=== PATIENT | male | born 1950 | race Caucasian/White ===

== ENCOUNTER 2021-10-04 12:49 | Inpatient (IN) ==
[2021-10-04] MEDS ORDERED: BUMETANIDE 2 MG in SYRINGE 0 ML IV ONE (12:55)
--- NOTE | 2021-10-04 13:21 | Emergency Department Note ---
Impression & Plan Weakness, SOB (shortness of breath), CHF (congestive heart failure), Tachycardia, COVID-19 ED Provider Note NAME: JOAQUIM CALHOUN AGE: 70 SEX: M : 1950 ARRIVES VIA: Ambulance INFORMANT: [Patient][ems] ED PROVIDER(S): [Diego Nieves MD] CHIEF COMPLAINT: Illness, short of breath HISTORY OF PRESENT ILLNESS: The patient is a 70-year-old male who has a history of CHF and a low ejection fraction. He was discharged from [facility] about 5 days ago for a bout of CHF. Since discharge, his legs have become more swollen, he has become more short of breath and he has gained weight. He was seen at the cardiology office today and referred to the ED for hospitalization and IV diuresis. Patient does complain of a dry cough. No fever. He admits to shortness of breath with exertion. He is taking his diuretic as prescribed. The patient denies any chest pain. He does state his legs are definitely more swollen than baseline. Of note, the patient is not vaccinated for COVID or influenza. REVIEW OF SYSTEMS: See HPI for pertinent positives and negatives. A total of ten systems were reviewed and were otherwise negative. PMHx/PSHx: See Below SOCIAL HISTORY: See Below. PHYSICAL EXAM: GENERAL: Patient is in no acute distress. HEENT: No acute trauma, normocephalic atraumatic, mucous membranes dry, no nasal congestion, no scleral icterus. NECK: No stridor, no adenopathy, no meningismus, trachea is midline. LUNGS: Few crackles bilaterally, few wheezes heard bilaterally. Breath sounds are diminished bilaterally, no respiratory distress, dry cough noted. HEART: 2/6 systolic murmur, irregular rhythm, mildly tachycardic ABDOMEN: Soft, nontender, bowel sounds positive, no hernias, no peritonitis. EXTREMITIES: No cyanosis, moderate bilateral pedal edema, full range of motion of all the joints without pain or difficulty, no signs for acute trauma. NEUROLOGIC: Oriented x 3, no acute motor or sensory deficits, no focal weakness. SKIN: No rash, no jaundice, no diaphoresis. Seems a bit pale. DIFFERENTIAL DIAGNOSIS: Reactive airway disease, pneumonia, pneumothorax, COVID-19, influenza, COPD, CHF, infection, cardiac ischemia, pulmonary embolism, bronchitis, musculoskeletal, gastrointestinal, as well as other pathologies. EMERGENCY DEPARTMENT COURSE/PROCEDURES: ECG: Indication was shortness of breath. The ECG shows a ventricular pacemaker with multiple presumed muscogee beats or PVCs The rate is 127. There is some ST elevation to the anterior leads but this appears consistent with the left bundle branch block pattern. QTC is 563. Compared to an ECG from 2011, the rate has increased, the anterior ST elevation is now seen. Continuous Cardiac Monitoring: An order was placed for continuous cardiac monitoring. The monitor shows a rate of 118 with a ventricular pacemaker and muscogee beats/PVCs. MEDICAL DECISION MAKING: There is no leukocytosis. A mild anemia was noted at 12.8. Platelet count a bit low at 124. INR was somewhat high at 1.4. Sodium low at 135. There was some elevation to the creatinine at 1.89. Glucose mildly elevated. Some subtle liver enzyme elevations were noted. BNP was quite high at over one thousand consistent with fluid overload and CHF. ECG shows a ventricular pacemaker with multiple muscogee beats. The patient was tachycardic. Cardiac enzyme testing x1 is somewhat elevated consistent with cardiac injury/strain. TSH was high however, the T4 was normal. Chest x-ray does show cardiomegaly and some CHF. No pneumonia. COVID testing returned positive. Influenza and RSV testing returned negative. The patient was given IV Bumex, 2 mg. He was given a dose of IV Lopressor, 5 mg. This slowed his heart rate a bit but did drop his blood pressure under 100 systolic. The patient presents with weakness, shortness of breath. He was sent over from the cardiology clinic for worsening fluid overload/CHF. In addition, he is COVID-positive. I suspect his dyspnea and complaints are from his CHF as well as the COVID infection. I did speak with the patient about his findings, case management was consulted. The on-call hospitalist was consulted. Cardiology did see the patient here in the ED. Admission is warranted. Past Med/Surg History Medical History (Updated 10/04/21 @ 19:06 by Diego Nieves MD) Acute on chronic renal insufficiency Chronic atrial fibrillation with rapid ventricular response HTN (hypertension) Hypothyroidism Severe aortic insufficiency Social History Smoking Status: Never smoker Hx Alcohol Use: No Hx Substance Use: No Preferred Language: [place]de[place] Communication Ability: Effective Mental Health Coordinator Required: No Beliefs That Will Affect Care: None Current Living Situation: Spouse Other Information That Helps Us Care for You: No Feels Safe at Home: Yes Assistive Devices: None Allergies Allergies Allergy/AdvReac Type Severity Reaction Status Date / Time latex Allergy Mild RASH Verified 10/04/21 13:44 amiodarone Allergy Unknown liver Verified 10/04/21 13:44 complications NSAIDS (Non-Steroidal Allergy Unknown unknown Verified 10/04/21 13:44 Anti-Inflamma [id number]-[id number]-HsR Reductase Allergy Unknown myositis Verified 10/04/21 13:44 Inhibitor [Ygtejuo-Puz-Ocx Reductase Inhibitor] gabapentin Allergy Confusion Unverified 10/04/21 13:44 pregabalin [From Lyrica] Allergy Confusion Unverified 10/04/21 13:44 Home Meds Home Medications Medication Instructions Recorded Confirmed aspirin 81 mg capsule 81 mg PO DAILY 10/04/21 10/04/21 glipizide 2.5 mg tablet, extended 2.5 mg PO DAILY 10/04/21 10/04/21 release 24 hr inulin 1.5 gram chewable tablet 0 g PO DAILY 10/04/21 10/04/21 levothyroxine 25 mcg tablet 50 mcg PO DAILYBB 10/04/21 10/04/21 metoprolol succinate 25 mg 37.5 mg PO BID 10/04/21 10/04/21 tablet,extended release 24 hr omeprazole 40 mg capsule,delayed 40 mg PO QAM 10/04/21 10/04/21 release temazepam 30 mg capsule 30 mg PO HS PRN 10/04/21 10/04/21 torsemide 20 mg tablet 20 mg PO BID 10/04/21 10/04/21 vitamin E 1,000 unit capsule 1,000 unit PO DAILY 10/04/21 10/04/21 Results & Data (ED) Vital Signs Vital Signs - 24 hr 10/04/21 13:13 10/04/21 13:15 10/04/21 13:24 Temperature 36.7 C Temperature Source Temporal Artery Scan Pulse Rate 118 H 118 H Pulse Rate [Apical] 113 H Pulse Rhythm [Apical] Irregular Respiratory Rate 18 24 24 Respiratory Effort / Characteristics Non-Labored Spontaneous Non-Labored Respiratory Depth Normal Blood Pressure 110/87 Blood Pressure [Left Arm] 110/87 Blood Pressure Mean 94 Blood Pressure Mean [Left Arm] 94 Blood Pressure Position [Left Arm] Semi-fowlers Pulse Oximetry 98 97 97 Oxygen Delivery Method Room Air Room Air Room Air Sepsis Recent Fever Within 48 Hours No Sepsis New/Unexplained Change in Mental Status N/A Sepsis Action Taken by Nursing No Action Required Home Medications Current Medication List: was personally reviewed by me Laboratory Data Attestation: I reviewed the patient's lab results. Result diagrams: 10/04/21 13:21 10/04/21 13:21 Lab Results 10/04/21 10/04/21 10/04/21 Range/Units 13:21 13:21 13:21 WBC 6.18 (4.8-10.8) K/uL RBC 5.24 (4.7-6.1) M/uL Hgb 12.8 L (14.0-18.0) g/dL Hct 40.6 L (42-52) % MCV 77.5 L (80-100) fL MCH 24.4 L (25-34) pg MCHC 31.5 L (32-36) g/dL RDW Std Deviation 46.2 (36.4-46.3) fL RDW Coeff of Jenny 16.8 H (11.5-14.5) % Plt Count 124 L (130-400) K/uL Immature Gran % (Auto) 0.3 % Neut % (Auto) 67.9 % Lymph % (Auto) 25.1 % Banks % (Auto) 6.3 % Eos % (Auto) 0.2 % Baso % (Auto) 0.2 % Neut # (Auto) 4.20 (1.4-6.5) K/uL Lymph # (Auto) 1.55 (1.2-3.4) K/uL Banks # (Auto) 0.39 (0.11-0.59) K/uL Eos # (Auto) 0.01 (0-0.5) K/uL Baso # (Auto) 0.01 (0-0.2) K/uL Immature Gran # (Auto) 0.02 (0.00-0.02) K/uL Platelet Estimate Decreased L (Normal) PT 13.7 H (9.0-12.0) Seconds INR 1.4 H (0.9-1.1) APTT 27.8 (21.0-31.0) Seconds PTT Ratio 1.1 Sodium 135 L (136-145) mmol/L Potassium 3.8 (3.5-5.1) mmol/L Chloride 99 (98-107) mmol/L Carbon Dioxide 25 (21-32) mmol/L Anion Gap 11 (3-11) BUN 46 H (6-23) mg/dl Creatinine 1.89 H (0.6-1.4) mg/dl Est Cr Clr Drug Dosing 36.8 ml/min Est GFR ( Amer) 40.5 ml/min Est GFR (Non-Af Amer) 34.9 ml/min BUN/Creatinine Ratio 24.3 H (10-20) Glucose 285 H (70-99(Fasting)) mg/dl Calcium 8.5 (8.5-10.1) mg/dl Magnesium 2.1 (1.7-2.4) mg/dl Total Bilirubin 1.2 H (0.2-1.0) mg/dl AST 25 (13-39) U/L ALT 38 (7-52) U/L Alkaline Phosphatase 151 H (34-104) U/L Troponin I 0.11 H* (0-0.04) ng/ml C-Reactive Protein (0-0.5) mg/dl B-Natriuretic Peptide (0-100) pg/ml Total Protein 6.3 (6.0-8.3) gm/dl Albumin 3.7 (3.4-5.0) gm/dl Globulin 2.6 (2.5-4.0) gm/dl Albumin/Globulin Ratio 1.4 (0.9-2) Procalcitonin (0-0.5) ng/ml TSH (0.300-4.500) uIu/ml Free T4 (0.61-1.60) ng/dl 10/04/21 10/04/21 10/04/21 Range/Units 13:21 13:21 13:21 WBC (4.8-10.8) K/uL RBC (4.7-6.1) M/uL Hgb (14.0-18.0) g/dL Hct (42-52) % MCV (80-100) fL MCH (25-34) pg MCHC (32-36) g/dL RDW Std Deviation (36.4-46.3) fL RDW Coeff of Jenny (11.5-14.5) % Plt Count (130-400) K/uL Immature Gran % (Auto) % Neut % (Auto) % Lymph % (Auto) % Banks % (Auto) % Eos % (Auto) % Baso % (Auto) % Neut # (Auto) (1.4-6.5) K/uL Lymph # (Auto) (1.2-3.4) K/uL Banks # (Auto) (0.11-0.59) K/uL Eos # (Auto) (0-0.5) K/uL Baso # (Auto) (0-0.2) K/uL Immature Gran # (Auto) (0.00-0.02) K/uL Platelet Estimate (Normal) PT (9.0-12.0) Seconds INR (0.9-1.1) APTT (21.0-31.0) Seconds PTT Ratio Sodium (136-145) mmol/L Potassium (3.5-5.1) mmol/L Chloride (98-107) mmol/L Carbon Dioxide (21-32) mmol/L Anion Gap (3-11) BUN (6-23) mg/dl Creatinine (0.6-1.4) mg/dl Est Cr Clr Drug Dosing ml/min Est GFR ( Amer) ml/min Est GFR (Non-Af Amer) ml/min BUN/Creatinine Ratio (10-20) Glucose (70-99(Fasting)) mg/dl Calcium (8.5-10.1) mg/dl Magnesium (1.7-2.4) mg/dl Total Bilirubin (0.2-1.0) mg/dl AST (13-39) U/L ALT (7-52) U/L Alkaline Phosphatase (34-104) U/L Troponin I (0-0.04) ng/ml C-Reactive Protein 1.63 H (0-0.5) mg/dl B-Natriuretic Peptide 1322 H (0-100) pg/ml Total Protein (6.0-8.3) gm/dl Albumin (3.4-5.0) gm/dl Globulin (2.5-4.0) gm/dl Albumin/Globulin Ratio (0.9-2) Procalcitonin (0-0.5) ng/ml TSH 6.694 H (0.300-4.500) uIu/ml Free T4 1.15 (0.61-1.60) ng/dl 10/04/21 Range/Units 13:21 WBC (4.8-10.8) K/uL RBC (4.7-6.1) M/uL Hgb (14.0-18.0) g/dL Hct (42-52) % MCV (80-100) fL MCH (25-34) pg MCHC (32-36) g/dL RDW Std Deviation (36.4-46.3) fL RDW Coeff of Jenny (11.5-14.5) % Plt Count (130-400) K/uL Immature Gran % (Auto) % Neut % (Auto) % Lymph % (Auto) % Banks % (Auto) % Eos % (Auto) % Baso % (Auto) % Neut # (Auto) (1.4-6.5) K/uL Lymph # (Auto) (1.2-3.4) K/uL Banks # (Auto) (0.11-0.59) K/uL Eos # (Auto) (0-0.5) K/uL Baso # (Auto) (0-0.2) K/uL Immature Gran # (Auto) (0.00-0.02) K/uL Platelet Estimate (Normal) PT (9.0-12.0) Seconds INR (0.9-1.1) APTT (21.0-31.0) Seconds PTT Ratio Sodium (136-145) mmol/L Potassium (3.5-5.1) mmol/L Chloride (98-107) mmol/L Carbon Dioxide (21-32) mmol/L Anion Gap (3-11) BUN (6-23) mg/dl Creatinine (0.6-1.4) mg/dl Est Cr Clr Drug Dosing ml/min Est GFR ( Amer) ml/min Est GFR (Non-Af Amer) ml/min BUN/Creatinine Ratio (10-20) Glucose (70-99(Fasting)) mg/dl Calcium (8.5-10.1) mg/dl Magnesium (1.7-2.4) mg/dl Total Bilirubin (0.2-1.0) mg/dl AST (13-39) U/L ALT (7-52) U/L Alkaline Phosphatase (34-104) U/L Troponin I (0-0.04) ng/ml C-Reactive Protein (0-0.5) mg/dl B-Natriuretic Peptide (0-100) pg/ml Total Protein (6.0-8.3) gm/dl Albumin (3.4-5.0) gm/dl Globulin (2.5-4.0) gm/dl Albumin/Globulin Ratio (0.9-2) Procalcitonin 0.23 (0-0.5) ng/ml TSH (0.300-4.500) uIu/ml Free T4 (0.61-1.60) ng/dl Administered Medications Bumetanide 1 mg/ Syringe 4 mls @ 4 mls/min IV BID@0900,1700 [facility] Stop: 11/03/21 17:10 Last Admin: 10/04/21 17:55 Dose: 4 mls/min Documented by: [id number] Insulin Aspart (Insulin Aspart Per Unit) 0 units SC ACHS [facility]; Protocol Stop: 11/03/21 16:29 Last Admin: 10/04/21 17:42 Dose: 22 units Documented by: [id number] Cosigned by: [id number] Discontinued Medications Albuterol (Albuterol Hfa 8 Gm Inhaler) 2 puffs INH QID ADRIANNE Stop: 11/03/21 16:59 Last Admin: 10/04/21 17:06 Dose: Not Given Documented by: [id number] Bumetanide 2 mg/ Syringe 8 mls @ 4 mls/min IV ONE ONE Stop: 10/04/21 12:56 Last Admin: 10/04/21 14:35 Dose: 4 mls/min Documented by: [id number] Dexamethasone 6 mg/ Syringe 1.5 mls @ 1 mls/min IV DAILY [facility]; Protocol Stop: 10/14/21 08:59 Last Admin: 10/04/21 17:23 Dose: 1 mls/min Documented by: [id number] Insulin Human NPH (Insulin Human Nph) 25 units SC NOW ONE Stop: 10/04/21 16:01 Last Admin: 10/04/21 17:43 Dose: 25 units Documented by: [id number] Cosigned by: [id number] Metoprolol Tartrate (Metoprolol Tartrate 1 Mg/Ml Vial) 5 mg IV NOW STA Stop: 10/04/21 15:23 Last Admin: 10/04/21 15:28 Dose: 5 mg Documented by: [id number] Metoprolol Tartrate (Metoprolol Tartrate 1 Mg/Ml Vial) 5 mg IV NOW STA Stop: 10/04/21 15:47 Last Admin: 10/04/21 16:10 Dose: Not Given Documented by: [id number] Imaging Data Radiologist's Impression: Chest X-Ray 10/04/21 12:54 XR chest 1V portable CLINICAL HISTORY: SOB. Increased fluid retention and wheezing COMPARISON STUDY: 05/12/2012 TECHNIQUE: 1 view of the chest FINDINGS: Single frontal view of the chest demonstrates the heart to be moderately to markedly enlarged status post previous cardiothoracic surgery and pacer placement. Compared to previous study, there is evidence for mild central vascular congestion and minimal bibasilar atelectasis. Is also suspicion of small bilateral pleural effusions. Follow-up PA and lateral radiographs would be helpful. No confluent alveolar opacities are identified. There is no acute osseous pathology. IMPRESSION: Evidence for mild central vascular congestion, minimal bibasilar atelectasis and small bilateral pleural effusions as described. ACT 112: Negative or not required by law. Electronically signed by: Frandy Verdin M.D. 10/04/2021 1:35 PM Discharge Plan Visit Data Chief Complaint: Illness Stated Complaint: REFERRED BY PCP, ED Provider: Diego Nieves Discharge Problem: Weakness, SOB (shortness of breath), CHF (congestive heart failure), Tachycardia, COVID-19 Patient Disposition: Admitted As Inpatient Condition: Fair Discharge Instructions Interventions: ED Discharge Assessment Last Done: 10/04/21 18:16
--- NOTE | 2021-10-04 13:36 | XRay Report ---
XR chest 1V portable CLINICAL HISTORY: SOB. Increased fluid retention and wheezing COMPARISON STUDY: 05/12/2012 TECHNIQUE: 1 view of the chest FINDINGS: Single frontal view of the chest demonstrates the heart to be moderately to markedly enlarged status post previous cardiothoracic surgery and pacer placement. Compared to previous study, there is eviden ce for mild central vascular congestion and minimal bibasilar atelectasis. Is also suspicion of small bilateral pleural effusions. Follow-up PA and lateral radiographs would be helpful. No confluent mack eolar opacities are identified. There is no acute osseous pathology. IMPRESSION: Evidence for mild central vascular congestion, minimal bibasilar atelectasis and small bi lateral pleural effusions as described. ACT 112: Negative or not required by law. Electronically signed by: Frandy Verdin M.D. 10/04/2021 1:35 PM
--- NOTE | 2021-10-04 13:36 | History & Physical Report ---
Date of Service October 04, 2021 Assessment & Plan (1) Severe aortic insufficiency: (2) S/P aortic valve replacement using Ross procedure: (3) S/P AAA repair: (4) HTN (hypertension): (5) Chronic atrial fibrillation: (6) Hypervolemia: (7) Biventricular implantable cardioverter-defibrillator in situ: Plan: - Admit to PCU - Consult Cardiology - Dr. Shin is on consult, follows routinely with Dr. Ruiz as an outpatient and comes from the cardiac office today - Will start on IV Bumex 1 mg BID per cards, he has recently been on bumex in outpatient and was changed over to torsemide in the past 2 weeks, will ask cards to determine which diuretic to continue on discharge - Place sanches cath for strict I/Os - Continue daily weights, fluid restriction of 1500 mL daily - Monitor Cr. daily with aggressive diuresis, Cr. baseline is 1.8-2.1, currently 1.89 - Trend troponins as initial was elevated at 0.11, ekg without acute ischemic findings - Recheck EKG in am - no anticoagulation secondary to hx of near fatal GI bleed in 2010 (8) DM II (diabetes mellitus, type II), controlled: Plan: - Hold glipizide, ISS with accuchecks achs - Recheck A1C - Boost ordered (9) Hypothyroidism: Plan: - Continue levothyroxine DVT ppx: - teds, scds CODE: DNI/DNR - discussed with the patient at bedside Dispo: From home, likely to remain in the hospital x 1-2 days History of Present Illness Chief Complaint: Shortness of breath, hypervolemia Primary Care Provider: Bryon Pimentel MD This is a 70 yo M with PMhx of CHF; history of complex multifactorial nonischemic cardiomyopathy, aortic valve replacement s/p Ross procedure in 1995 and aortic valve replacement for aoritc insufficiency at [facility] in 2011, AAA s/o repair in 2010, chronic atrial fibrillation, not on anticoagulation due to past life-threatening gastrointestinal bleeding in 2010, Severe aortic insufficiency, EF of 20-25%, HTN, atrial flutter s/p cavotricuspid isthmus ablation in 2010 and ablation of a second right atrial (scar) atrial flutter in 2010, LBBB, s/p implantation of Medtronic biventricular defibrillator in 2011, DM II and hypothyroidism. Unfortunately over the last few months, patient decided to complete a dietary 'cleanse' and subsequently stopped taking all of his cardiac medications. He developed worsening SOB, and fluid retention. He resumed his torsemide as an outpatient without improvement. On 09/18/21 he was admitted to [facility] for acute decompensated systolic HF exacerbation, complicated by elevated LFT's, CARLITOS, and afib RVR. He was followed by cardiology. He was started on IV lasix with improvement in his volume status. Digoxin was discontinued and metoprolol increased to 37.5 mg BID to aid with ventricular rates. He was not anticoagulated due to past GI bleeding issues and patient preference. Amiloride was stopped on discharge as well. He resumed prior dose of Bumex 2 mg in the morning and 1 mg in the afternoon on discharge. Since being discharged he reports worse fluid retention, and weight gain of 15 lbs. He was seen last week due to being acutely worse with SOB and fluid retention and declined hospitalization at that time. He was treated with IV lasix 80 mg. Bumex was stopped and torsemide was initiated. Metoprolol was also resumed at 37.5 mg as the pt had reduced dose back to 25 mg since hospital discharge. He presented to the outpatient cardiology clinic earlier today. After his visit there, EMS was called and he was brought directly to the hospital. His symptoms include significant dyspnea with minimal exertion, bilateral lower edema with swelling so severe that there are clear fluid seeping out at times. His weight is down slightly ( 6 lbs) in the cards office compared to last week but still reports feeling worse. Dry weight is 185 lbs, but weighs 196 today. Pt reports no shorntess of breath at rest. His appetite is slightly diminished, but is hungry currently and requesting a drink for thirst. Pt would like a protein supplement while here. He denies dizziness, lightheadedness, chest pain and palpitations. Allergies Allergy/AdvReac Type Severity Reaction Status Date / Time latex Allergy Mild RASH Verified 10/04/21 13:44 amiodarone Allergy Unknown liver Verified 10/04/21 13:44 complications NSAIDS (Non-Steroidal Allergy Unknown unknown Verified 10/04/21 13:44 Anti-Inflamma Idlywyd-XSW-MbQ Reductase Allergy Unknown myositis Verified 10/04/21 13:44 Inhibitor [Tyivfbs-Kad-Awm Reductase Inhibitor] gabapentin Allergy Confusion Unverified 10/04/21 13:44 pregabalin [From Lyrica] Allergy Confusion Unverified 10/04/21 13:44 Home Medications Medication Instructions Recorded Confirmed Type aspirin 81 mg capsule 81 mg PO DAILY 10/04/21 10/04/21 History glipizide 2.5 mg tablet, extended 2.5 mg PO DAILY 10/04/21 10/04/21 History release 24 hr inulin 1.5 gram chewable tablet 0 g PO DAILY 10/04/21 10/04/21 History levothyroxine 25 mcg tablet 50 mcg PO DAILYBB 10/04/21 10/04/21 History metoprolol succinate 25 mg 37.5 mg PO BID 10/04/21 10/04/21 History tablet,extended release 24 hr omeprazole 40 mg capsule,delayed 40 mg PO QAM 10/04/21 10/04/21 History release temazepam 30 mg capsule 30 mg PO HS PRN 10/04/21 10/04/21 History torsemide 20 mg tablet 20 mg PO BID 10/04/21 10/04/21 History vitamin E 1,000 unit capsule 1,000 unit PO DAILY 10/04/21 10/04/21 History Past Med/Surg History Social History Smoking Status: Never smoker Hx Alcohol Use: No Hx Substance Use: No Preferred Language: Citizen Of [place] Communication Ability: Effective 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 Beliefs That Will Affect Care: None Current Living Situation: Spouse Other Information That Helps Us Care for You: No Feels Safe at Home: Yes Assistive Devices: None Review of Systems Review of Systems: Constitutional: No fever, sweats or chills Eyes: No diplopia, no worsening or blurred vision ENT: normal hearing, no trouble swallowing, + dry nose and bleeding if he takes baby aspirin every day Respiratory: + occasional dry cough, occasional clear sputum, no dyspnea at rest, + dyspnea on exertion, no orthopnea, no O2 use at baseline Cardiovascular: No chest pain, tightness or palpitations Abdomen: + decreased appetite, No pain, nausea, vomiting, diarrhea or constipation Musculoskeletal: No joint pain, calf pain, + significant lower extremity swelling Neurologic: + generalized weakness, no numbness/tingling, or balance problems Psychiatric: No anxiety or depression Skin: No rash or itch Physical Exam Physical Exam: General: awake, alert, no apparent distress Head: Normocephalic, atraumatic ENT: PERRL, EOMI, no pharyngeal exudate, mucous membranes moist Chest: Clear to auscultation, on room air, no adventitious breath sounds Cardiac: irregularly irregular, tachycardic with hr in 110s, + systolic ejection murmur, + moderate JVD, normal peripheral pulses, good capillary refill Abdominal: NABS x 4 quadrants, soft, nondistended, nontender to palpation, no rebound or guarding Extremities: Normal inspection, 2+ pitting peripheral edema, no seeping of fluid, no erythema, calfs nontender to palpation Psych: Normal mood and affect Neuro: AAO x 3, strength intact bilaterally and rated 5/5, no motor deficits, speech is clear, no peripheral sensory deficits Results & Data Results & Data ([facility]) Laboratory Results 10/04/21 10/04/21 10/04/21 13:21 13:21 13:21 WBC RBC Hgb Hct MCV MCH MCHC RDW Std Deviation RDW Coeff of Jenny Plt Count Immature Gran % (Auto) Neut % (Auto) Lymph % (Auto) [place] % (Auto) Eos % (Auto) Baso % (Auto) Neut # (Auto) Lymph # (Auto) [place] # (Auto) Eos # (Auto) Baso # (Auto) Immature Gran # (Auto) Platelet Estimate PT 13.7 H INR 1.4 H APTT 27.8 PTT Ratio 1.1 Sodium 135 L Potassium 3.8 Chloride 99 Carbon Dioxide 25 Anion Gap 11 BUN 46 H Creatinine 1.89 H Est Cr Clr Drug Dosing 36.8 Est GFR ( Amer) 40.5 Est GFR (Non-Af Amer) 34.9 BUN/Creatinine Ratio 24.3 H Glucose 285 H Calcium 8.5 Magnesium 2.1 Total Bilirubin 1.2 H AST 25 ALT 38 Alkaline Phosphatase 151 H Troponin I 0.11 H* B-Natriuretic Peptide 1322 H Total Protein 6.3 Albumin 3.7 Globulin 2.6 Albumin/Globulin Ratio 1.4 10/04/21 13:21 WBC 6.18 RBC 5.24 Hgb 12.8 L Hct 40.6 L MCV 77.5 L MCH 24.4 L MCHC 31.5 L RDW Std Deviation 46.2 RDW Coeff of Jenny 16.8 H Plt Count 124 L Immature Gran % (Auto) 0.3 Neut % (Auto) 67.9 Lymph % (Auto) 25.1 [place] % (Auto) 6.3 Eos % (Auto) 0.2 Baso % (Auto) 0.2 Neut # (Auto) 4.20 Lymph # (Auto) 1.55 [place] # (Auto) 0.39 Eos # (Auto) 0.01 Baso # (Auto) 0.01 Immature Gran # (Auto) 0.02 Platelet Estimate Decreased L PT INR APTT PTT Ratio Sodium Potassium Chloride Carbon Dioxide Anion Gap BUN Creatinine Est Cr Clr Drug Dosing Est GFR ( Amer) Est GFR (Non-Af Amer) BUN/Creatinine Ratio Glucose Calcium Magnesium Total Bilirubin AST ALT Alkaline Phosphatase Troponin I B-Natriuretic Peptide Total Protein Albumin Globulin Albumin/Globulin Ratio Diagnostic Findings Chest X-Ray 10/04/21 12:54 XR chest 1V portable CLINICAL HISTORY: SOB. Increased fluid retention and wheezing COMPARISON STUDY: 05/12/2012 TECHNIQUE: 1 view of the chest FINDINGS: Single frontal view of the chest demonstrates the heart to be moderately to markedly enlarged status post previous cardiothoracic surgery and pacer placement. Compared to previous study, there is evidence for mild central vascular congestion and minimal bibasilar atelectasis. Is also suspicion of small bilateral pleural effusions. Follow-up PA and lateral radiographs would be helpful. No confluent alveolar opacities are identified. There is no acute osseous pathology. IMPRESSION: Evidence for mild central vascular congestion, minimal bibasilar atelectasis and small bilateral pleural effusions as described. ACT 112: Negative or not required by law. Electronically signed by: Frandy Verdin M.D. 10/04/2021 1:35 PM ECG Additional Comments: 04-OCT-2021 13:07:40 [facility]-EDSTAT ROUTINE RETRIEVAL Ventricular-paced rhythm with occasional supraventricular complexes Abnormal ECG When compared with ECG of 12-MAY-2012 11:21, Premature ventricular complexes are no longer Present Vent. rate has increased BY 36 BPM 25mm/s 10mm/mV 150Hz 9.0.9 12SL 241 SKYE: 15 Unconfirmed Vent. rate 127 BPM VA interval * ms QRS duration 146 ms QT/QTc 388/563 ms Supervising Physician Co-Signing Physician Notes Patient is a 70-year-old male with complex medical history of CHF, AVR S/P Ross procedure, AAA S/P repair, chronic atrial fibrillation currently not on anticoagulation due to history of GI bleed, hypothyroidism, diabetes mellitus and other medical problems presents with history of worsening shortness of breath, fluid retention. Patient was evaluated by his needle board repairer as outpatient and was sent to ED for management of volume overload. He was tested positive for COVID in ED. He denies any chest pain, dizziness, nausea, vomiting, abdominal pain. Admits to having nonproductive cough. He was found to be in A. fib RVR while in ED. Please review HPI for complete details of presentation. Patient refused anticoagulation due to history of significant GI bleed in the past. Blood work suggestive of anemia 12.8, thrombocytopenia 120 4K, INR mildly elevated 1.4, creatinine 1.89, blood glucose levels 285, troponin elevated at 0.11, BNP 1322, TSH 6.6, normal free T4. Chest x-ray showed mild vascular congestion, bibasilar atelectasis, small bilateral pleural effusions. On exam patient is chronically ill appearing, normocephalic atraumatic, no apparent distress, EOMI, decreased breath sounds, basilar Rales,+ murmur, irregularly irregular rhythm, tachycardic, bilateral lower extremity edema, abdomen soft, nontender, normal bowel sounds, alert, awake, oriented, grossly no focal deficits. Patient is admitted for management of acute on chronic systolic, diastolic heart failure, A. fib RVR, COVID-19 infection. Will start on IV Bumex, monitor I's and O's, daily weight, fluid restriction, low-sodium diet. Appreciate cardiology input. Started on metoprolol 12.5 mg every 6 hours for A. fib rate control. Will update echo patient refuses anticoagulation treatment. Patient states being unvaccinated for COVID-19. Patient currently saturating well on room air. Conservative management for CVOID unless develops hypoxia. Patient prefers to be DNI/DNR. I personally reviewed the record. Patient is interviewed and examined at bedside. Patient's care is coordinated with Patria Urrutia PA-C. Please refer to the documentation above for details of patient's presentation and for discussion of other issues. Correction to Addendum: Given patient is saturating well on room air. No plan to start on dexamethasone.
[2021-10-04 13:38] LABS: Mean Corpuscular Hgb Conc 31.5 g/dL (32-36)
[2021-10-04 13:48] LABS: Hematocrit (blood only) 40.6 % (42-52); Hemoglobin 12.8 g/dL (14.0-18.0); Mean Corpuscular Hemoglobin 24.4 pg (25-34); Mean Corpuscular Volume 77.5 fL (80-100); RDW Coefficient of Variation 16.8 % (11.5-14.5); RDW Standard Deviation 46.2 fL (36.4-46.3); Red Blood Count 5.24 M/uL (4.7-6.1); White Blood Count 6.18 K/uL (4.8-10.8)
[2021-10-04 14:07] LABS: Basophils # (auto) 0.01 K/uL (0-0.2); Basophils % (auto) 0.2 %; Eosinophils # (auto) 0.01 K/uL (0-0.5); Eosinophils % (auto) 0.2 %; Immature Granulocytes # (auto) 0.02 K/uL (0.00-0.02); Immature Granulocytes % (auto) 0.3 %; Lymphocytes # (auto) 1.55 K/uL (1.2-3.4); Lymphocytes % (auto) 25.1 %; Monocytes # (auto) 0.39 K/uL (0.11-0.59); Monocytes % (auto) 6.3 %; Neutrophils % (auto) 67.9 %; Platelet Count 124 K/uL (130-400); Platelet Estimate Decreased (Normal)
[2021-10-04 14:13] LABS: INR 1.4 (0.9-1.1); Partial Thromboplastin Ratio 1.1; Partial Thromboplastin Time 27.8 Seconds (21.0-31.0); Prothrombin Time 13.7 Seconds (9.0-12.0)
[2021-10-04 14:16] LABS: Troponin I 0.11 ng/ml (0-0.04)
[2021-10-04 14:21] LABS: Albumin Globulin Ratio 1.4 (0.9-2); Albumin Level 3.7 gm/dl (3.4-5.0); BUN Creatinine Ratio 24.3 (10-20); Bilirubin,Total 1.2 mg/dl (0.2-1.0); Calcium 8.5 mg/dl (8.5-10.1); Creatinine Clr Calc Pharmacy 36.8 ml/min; Est GFR (African American) 40.5 ml/min; Est GFR (Non-African American) 34.9 ml/min; Globulin 2.6 gm/dl (2.5-4.0); Magnesium 2.1 mg/dl (1.7-2.4); Potassium 3.8 mmol/L (3.5-5.1); Total Protein 6.3 gm/dl (6.0-8.3)
[2021-10-04 14:26] LABS: Thyroid Stimulating Hormone 6.694 uIu/ml (0.300-4.500)
[2021-10-04] MEDS ORDERED: METOPROLOL TARTRATE 1 MG/ML VIAL IV PRN ×2 (14:34→16:24)
[2021-10-04 14:48] LABS: Influenza A virus by PCR Negative (Neg); Influenza B virus by PCR Negative (Neg); RSV by PCR Negative (Neg)
[2021-10-04 14:56] LABS: SARS CoV2 RNA(COVID-19) InHosp POSITIVE (Negative)
[2021-10-04 15:22] LABS: T4 Free Thyroxine 1.15 ng/dl (0.61-1.60)
[2021-10-04] MEDS ORDERED: METOPROLOL TARTRATE 1 MG/ML VIAL IV STA ×2 (15:22→15:46)
[2021-10-04] MEDS ORDERED: dexAMETHasone 6 MG in SYRINGE 0 ML IV SCH (15:30)
[2021-10-04] MEDS ORDERED: ALBUTEROL HFA 8 GM INHALER INH PRN (15:50)
[2021-10-04] MEDS ORDERED: INSULIN HUMAN NPH SC ONE (16:00)
--- NOTE | 2021-10-04 16:01 | Pharmacy Report ---
Pharmacy Glycemic Short Note 2 - Date of Service October 04, 2021 - Glycemic Short BSG Results (Last 24 hours): 10/04/21 13:21 Glucose 285 H OUTPATIENT ANTIDIABETIC REGIMEN: * Glipizide (note - patient self dc'd his cardiac medications over the last couple months per H&P. Patient may or may not have been taking of late) * HbA1c ordered 10/05/21 ASSESSMENT: * 70 yo M with T2DM admitted for cardiac complications in the setting of recent prolonged self-discontinuation of medications. Also COVID positive on admission. Dexamethasone initiated. * BSG x1 significantly elevated. Will start with NPH as basal for more rapid onset of action. May continue with next dose tomorrow AM with dexamethasone * Will initiate weight-based severe stress Novolog 2nd steroids and elevated initial BSG PLAN FOR INPATIENT GLYCEMIC CONTROL: * Hold outpatient oral diabetes medications * Basal insulin * NPH 25 units SQ x1 * Bolus insulin * NovoLog per scale ACHS or Q6hrs while NPO * Goal Range: Low 110 mg/dL - High 140 mg/dL * Correction Factor: 15 mg/dL/unit * Nutritional / Prandial insulin per carb ratio of 1 unit per 6 grams CHO consumed PLAN FOR DISCHARGE: * tbd
--- NOTE | 2021-10-04 16:21 | Cardiology Consultation ---
Date of Consultation October 04, 2021 Assessment & Plan (1) Acute on chronic heart failure with reduced ejection fraction and diastolic dysfunction: (2) NICM (nonischemic cardiomyopathy): (3) Chronic atrial fibrillation with rapid ventricular response: (4) COVID-19: (5) CKD (chronic kidney disease): Recommend intravenous diuretic therapy, Bumex 1 mg twice daily. Follow daily weight, fluid balance, GFR, and electrolytes. Fluid restriction, 1500 cc daily. Echols catheter placed. Heart rate remains elevated, recommend metoprolol tartrate 12.5 mg every 6 hours. Patient declines anticoagulation for atrial fibrillation due to history of near fatal GI bleeding in 2010. Patient is not a candidate for Entresto, SANJIV inhibitor, ARB, or Aldactone due to chronic hypotension and renal insufficiency. Treatment of COVID-19 as per internal medicine. History of Present Illness Reason for Consultation: CHF Requesting Physician: Rose Marie Urrutia PA-C Attending Physician: Dr. Sheppard History of Present Illness 70-year-old patient with history of complex cardiovascular disease including nonischemic cardiomyopathy, left bundle branch block, bicuspid aortic valve with aortic valve insufficiency status post Ross procedure, moderate to severe pulmonic regurgitation, persistent atrial fibrillation since 2017 with patient declining chronic anticoagulation. Seen today in the cardiology outpatient clinic. Due to severe edema, decline in function capacity, dyspnea he was referred to the ER for further evaluation and treatment. COVID positive in the ER. Appropriate PPE worn during evaluation. He notes orthopnea without PND. Denies chest discomfort or heaviness. Denies palpitations, lightheadedness, dizziness, syncope, or near syncope. Nonproductive cough intermittently. Notes profound fatigue over the past 2-3 weeks. Cardiovascular problem list copied from the [facility] medical record: 1. History of aortic valve disease S/P Ross procedure in 1995 and aortic valve replacement for aortic insufficiency at the [facility] in 2. Ascending aortic aneurysm S/P aneurysm repair at [facility] in 3. Left ventricular ejection fraction 35% in the setting of severe aortic insufficiency , <20% in after redo aortic valve replacement,20 to25% by LADAN in while in AF, and 45 to 50% (calculated) / 30 to 35% (qualitative) in while in NSRfollowing cardiac resynchronization therapy. 4. Hypertension 5. Atrial flutter S/P cavotricuspid isthmus ablation and ablation of a second right atrial ("scar") atrial flutter . 6. History of life-threateninggastrointestinalbleeding 7. Left bundle branch block with QRS duration of 180 ms in (nonspecific intraventricular conduction delay of 130 ms in 2010) 8. S/P implantation of a Medtronic biventricular defibrillator (INVESTMENT ADVISOR-ICD)model [id number] in 9. History of [place] while on dofetilide for atrial fibrillation (AF) in 10. Diabetes 11. Persistent atrial fibrillation S/P pulmonary vein isolation (PVI) radiofrequency catheter ablation (RFAC) 12.October, he was noted to refer to recurrent persistent atrial fibrillation. 13.Amiodarone subsequently discontinued, 2017 due to hyperthyroidism Allergies Allergy/AdvReac Type Severity Reaction Status Date / Time latex Allergy Mild RASH Verified 10/04/21 13:44 amiodarone Allergy Unknown liver Verified 10/04/21 13:44 complications NSAIDS (Non-Steroidal Allergy Unknown unknown Verified 10/04/21 13:44 Anti-Inflamma Kouuclb-BOM-AeZ Reductase Allergy Unknown myositis Verified 10/04/21 13:44 Inhibitor [Ulozrhf-Gbq-Pfr Reductase Inhibitor] gabapentin Allergy Confusion Unverified 10/04/21 13:44 pregabalin [From Lyrica] Allergy Confusion Unverified 10/04/21 13:44 Home Medications Medication Instructions Recorded Confirmed Type aspirin 81 mg capsule 81 mg PO DAILY 10/04/21 10/04/21 History glipizide 2.5 mg tablet, extended 2.5 mg PO DAILY 10/04/21 10/04/21 History release 24 hr inulin 1.5 gram chewable tablet 0 g PO DAILY 10/04/21 10/04/21 History levothyroxine 25 mcg tablet 50 mcg PO DAILYBB 10/04/21 10/04/21 History metoprolol succinate 25 mg 37.5 mg PO BID 10/04/21 10/04/21 History tablet,extended release 24 hr omeprazole 40 mg capsule,delayed 40 mg PO QAM 10/04/21 10/04/21 History release temazepam 30 mg capsule 30 mg PO HS PRN 10/04/21 10/04/21 History torsemide 20 mg tablet 20 mg PO BID 10/04/21 10/04/21 History vitamin E 1,000 unit capsule 1,000 unit PO DAILY 10/04/21 10/04/21 History Patient History Medical History (Updated 10/04/21 @ 19:06 by Diego Nieves MD) Acute on chronic renal insufficiency Chronic atrial fibrillation with rapid ventricular response HTN (hypertension) Hypothyroidism Severe aortic insufficiency Social History Smoking Status: Never smoker Hx Alcohol Use: No Hx Substance Use: No Preferred Language: Japanese Communication Ability: Effective Occupational Health Specialist Required: No Beliefs That Will Affect Care: None marital status: Current Living Situation: Spouse How many Children do You have: 2 Other Information That Helps Us Care for You: No Feels Safe at Home: Yes Assistive Devices: None Review of Systems Review of Systems: All systems reviewed & are unremarkable except as noted in Subjective Physical Exam Constitutional: + ill appearing and + cachectic Respiratory: no respiratory distress, no labored breathing and no retractions Auscultation: + diminished lung sounds (Bilateral bases) and + rales (Bilateral bases) Cardiovascular: Rate/Rhythm: + tachycardic and + irregularly irregular Heart Sounds: normal S1, normal S2 and + murmur (1-2/6 medium pitched systolic murmur heard best at the left second ICS) Extremities: + edema (2+ bilateral pretibial edema) Gastrointestinal (Abdomen): Inspection/Auscultation: abdomen normal to inspection and normal bowel sounds; abdomen not distended Percussion/Palpation: abdomen soft; abdomen nontender, no guarding and abdomen not rigid Neurologic: CN's II-XI intact bilaterally and moves all extremities; no focal motor deficits Motor/Sensory: no tremor Results & Data ([place]) Vital Signs (Past 12 Hours) Vital Signs Temp Pulse Pulse Resp BP BP Pulse Ox 10/04/21 15:28 131 H 103/88 10/04/21 13:24 118 H 24 97 10/04/21 13:15 36.7 C 118 H 24 110/87 97 10/04/21 13:13 113 H 18 110/87 98 Diagnostic Findings 2D echocardiogram report summary 07/07/2021: The qualitative LV ejection fraction is 20-24% (severely reduced). The left ventricular cavity is severely dilated (LVED volume >100 ml/m^2). There is severe diffuse left ventricular hypokinesis with desynchrony There is an aortic valve bioprosthetic present. Aortic valve prosthesis stenosis is absent. Significant aortic valve prosthesis regurgitation is absent. Trivial mitral regurgitation. Trace tricuspid regurgitation is present. Moderate pulmonic valve regurgitation. Moderate pulmonary hypertension is present. The estimated pulmonary artery systolic pressure is 48mm Hg. There was atrial fibrillation during the examination. The proximal ascending thoracic aorta is moderately enlarged.4.4cm
[2021-10-04] MEDS ORDERED: ALBUTEROL HFA 8 GM INHALER INH SCH (17:00)
[2021-10-04] MEDS ORDERED: GLUCAGON FOR INJ 1 MG VIAL SQ PRN (17:11)
[2021-10-04] MEDS ORDERED: GLUCOSE 10 TABS/TUBE PO PRN (17:11)
[2021-10-04] MEDS ORDERED: ACETAMINOPHEN 325 MG TAB PO PRN (17:11)
[2021-10-04] MEDS ORDERED: ONDANSETRON INJ 2 MG/ML 2 ML VIAL IV PRN (17:11)
[2021-10-04] MEDS ORDERED: INSULIN ASPART PER UNIT SC SCH (17:11)
[2021-10-04] MEDS ORDERED: DEXTROSE 50% 50 ML SYRINGE IV PRN (17:11)
[2021-10-04] MEDS ORDERED: CARBOHYDRATES FOR HYPOGLYCEMIA PO PRN (17:11)
[2021-10-04] MEDS ORDERED: GLUCOSE 40% GEL 15 GM TUBE PO PRN (17:11)
[2021-10-04] MEDS: INSULIN ASPART PER UNIT SC SCH ×2 (17:42→21:35)
[2021-10-04] MEDS: BUMETANIDE 1 MG in SYRINGE 0 ML IV SCH (17:55)
[2021-10-04] MEDS: ALBUTEROL HFA 8 GM INHALER INH SCH (20:13)
[2021-10-04] MEDS: HEPARIN SOD 5,000 UNIT/0.5 ML VIAL SQ SCH (21:08)
[2021-10-04] MEDS: METOPROLOL TARTRATE 25 MG TAB PO SCH (21:08)
--- NOTE | 2021-10-04 21:15 | Electrocardiogram Report ---
Test Reason : Blood Pressure : / mmHG Vent. Rate : 127 BPM Atrial Rate : 136 BPM P-R Int : 000 ms QRS Dur : 146 ms QT Int : 388 ms P-R-T Axes : 000 -07 057 degrees QTc Int : 563 ms Atrial fibrillation with rapid ventricular response with frequent ventricular-paced complexes Non-specific intra-ventricular conduction block Abnormal ECG When compared with ECG of 12-MAY-2012 11:21, Premature ventricular complexes are no longer Present Vent. rate has increased BY 36 BPM Confirmed by Lgoan Jackson ([id number]) on 10/04/2021 9:15:06 PM Referred By: Confirmed By:Logan Jackson
[2021-10-04] MEDS: TEMAZEPAM 15 MG CAPSULE PO PRN (21:16)
[2021-10-05] MEDS: METOPROLOL TARTRATE 25 MG TAB PO SCH ×4 (01:24→17:18)
[2021-10-05] MEDS: LEVOTHYROXINE SODIUM 50 MCG TABLET PO SCH (06:34)
[2021-10-05 07:24] LABS: Mean Corpuscular Hgb Conc 31.2 g/dL (32-36); Nucleated RBC # (auto) 0.03 K/uL (0-0)
[2021-10-05 07:40] LABS: Hematocrit (blood only) 38.5 % (42-52); Mean Corpuscular Hemoglobin 24.3 pg (25-34); Mean Corpuscular Volume 77.9 fL (80-100); RDW Coefficient of Variation 16.8 % (11.5-14.5); RDW Standard Deviation 46.6 fL (36.4-46.3); Red Blood Count 4.94 M/uL (4.7-6.1)
[2021-10-05 07:45] LABS: Albumin Globulin Ratio 1.3 (0.9-2); Albumin Level 3.2 gm/dl (3.4-5.0); BUN Creatinine Ratio 25.6 (10-20); Calcium 8.4 mg/dl (8.5-10.1); Chol HDL Ratio 2.7 (0-5); Creatinine Clr Calc Pharmacy 34.9 ml/min; Est GFR (Non-African American) 33.6 ml/min; Globulin 2.4 gm/dl (2.5-4.0); Magnesium 2.2 mg/dl (1.7-2.4); Phosphorus 3.6 mg/dl (2.5-4.9); Potassium 4.1 mmol/L (3.5-5.1); Total Protein 5.6 gm/dl (6.0-8.3)
[2021-10-05 07:51] LABS: Platelet Count 101 K/uL (130-400); Platelet Estimate Decreased (Normal)
[2021-10-05 07:54] LABS: Estimated Average Glucose 278 mg/dl; Hemoglobin A1C 11.3 % (4.5-5.6)
[2021-10-05 08:11] LABS: Troponin I 0.14 ng/ml (0-0.04)
[2021-10-05] MEDS ORDERED: ALBUTEROL HFA 8 GM INHALER INH PRN (08:25)
[2021-10-05] MEDS: ALBUTEROL HFA 8 GM INHALER INH SCH (08:28)
[2021-10-05] MEDS: ASPIRIN 81 MG ECTAB PO SCH ×3 (09:12→09:16)
[2021-10-05] MEDS: TOCOPHERYL, DL-ALPHA 400 UNITS 180 MG CAP PO SCH (09:12)
[2021-10-05] MEDS: PANTOprazole 40 MG TAB PO SCH (09:12)
[2021-10-05] MEDS: BUMETANIDE 1 MG in SYRINGE 0 ML IV SCH ×2 (09:13→17:37)
[2021-10-05] MEDS: HEPARIN SOD 5,000 UNIT/0.5 ML VIAL SQ SCH (09:14)
[2021-10-05] MEDS: TOCOPHERYL, DL-ALPHA 100 UNITS CAP PO SCH (09:14)
[2021-10-05] MEDS: INSULIN ASPART PER UNIT SC SCH ×4 (10:39→21:00)
--- NOTE | 2021-10-05 10:41 | Hospitalist Progress Note ---
Date of Service October 05, 2021 Assessment & Plan (1) Severe aortic insufficiency: (2) S/P aortic valve replacement using Ross procedure: (3) S/P AAA repair: (4) HTN (hypertension): (5) Chronic atrial fibrillation: (6) Hypervolemia: (7) Biventricular implantable cardioverter-defibrillator in situ: Plan: - Consult Cardiology - Dr. Shin is on consult, follows routinely with Dr. Ruiz as an outpatient and came from the cardiac office yesterday - Will start on IV Bumex 1 mg BID per cards, he has recently been on bumex in outpatient and was changed over to torsemide in the past 2 weeks, cards to determine which diuretic to continue on discharge - Echols cath for strict I/Os - Continue daily weights, fluid restriction of 1500 mL daily - Monitor Cr. daily with aggressive diuresis, Cr. baseline is 1.8-2.1, currently 1.89 - Trend troponins as initial was elevated at 0.11, ekg without acute ischemic findings - Recheck EKG in am - no anticoagulation secondary to hx of near fatal GI bleed in 2010 (8) DM II (diabetes mellitus, type II), controlled: Plan: - Hold glipizide, ISS with accu checks achs - Recheck A1C - Boost ordered (9) Hypothyroidism: Plan: - Continue levothyroxine DVT ppx: - teds, scds CODE: DNI/DNR - discussed with the patient at bedside Dispo: From home, likely to remain in the hospital x 1-2 days ROS-No Headache, No Visual Changes, No Nausea, No Vomiting, No Fever, No Chills, No Neck Pain or Stiffness, No Chest Pain, No Palpitations, No SOB, No NELSON, No Cough, No Sputum, No Wheezing, No Abdominal Pain, No Diarrhea, No Hematemesis, No Hemoptysis, No Unexpected Weight Loss, No Flank pain, No Melena, No Hematochezia, No Frequency, No Urgency, No Burning, No Hematuria, No Rashes, No Diaphoresis. Appetite is Normal Physical Exam Gen-AAO x 3, NAD, Afebrile Head-NCAT, EOMI, PERRLA, Anicteric Sclera, No Posterior Pharyngeal Erythema Neck-Supple, No JVD, No Thyromegaly, No Masses, No LAD, No Bruits Lungs-Clear to Auscultation Bilaterally, No Rales, No Rhonchi, No Wheezing, No Crepitus Chest-No S4, +S1, +S2, No S3, No Murmurs, No Rubs, No Gallops, No Ectopy Abdomen-Soft, Bowel Sounds Present, Non Tender, Non Distended, No Hepatomegaly, No Splenomegaly, No Palpable Masses, No Rebound, No Rigidity, No Guarding Musculoskeletal-Full Range of Motion Bilaterally, No CVAT Extremities-No Cyanosis, No Clubbing, No Edema Nuero-Cranial Nerves II-XII grossly intact, Motor WNL, DTRs WNL, Strength WNL, Non Focal Psych-Normal Mood Admission and Anticipated Discharge Date Admission Date: October 04, 2021 Subjective Patient seen, feels a little better Results & Data Results & Data ([facility]) Vital Signs (Past 12 Hours) Vital Signs Temp Pulse Resp BP Pulse Ox 10/05/21 10:35 105/80 10/05/21 06:51 36.3 C L 104 H 19 98/81 L 96 10/05/21 03:51 36.5 C 105 H 22 96/74 L 97 10/05/21 00:12 36.8 C 102 H 21 95/72 L 95 Laboratory Results Reviewed
[2021-10-05] MEDS ORDERED: INSULIN GLARGINE SOLOSTAR 100 UNITS/ML 3 ML PEN SC ONE (12:45)
[2021-10-05] MEDS ORDERED: DIGOXIN 250 MCG in SYRINGE 9 ML IV STA (13:53)
--- NOTE | 2021-10-05 13:57 | Pharmacy Report ---
Pharmacy Glycemic Short Note 2 - Date of Service October 05, 2021 - Glycemic Short BSG Results (Last 24 hours): 10/04/21 10/04/21 10/04/21 13:21 16:51 16:53 Glucose 285 H POC Glucose 283 H 253 H 10/04/21 10/05/21 10/05/21 20:38 06:34 08:05 Glucose 99 POC Glucose 196 H 103 H 10/05/21 12:04 Glucose POC Glucose 177 H OUTPATIENT ANTIDIABETIC REGIMEN: * Glipizide (note - patient self dc'd his cardiac medications over the last couple months per H&P. Patient may or may not have been taking of late) * HbA1c: 11.3% (10/05/21) ASSESSMENT: 10/05: * BSGs trended down nicely overnight, 253, 196, and 103 mg/dL this morning * No ongoing steroids ordered - d/c NPH * HbA1c resulted as 11.3%, will start conservative Lantus dose in light of low AM BSG and loosen Novolog parameters with discontinuation of steroids 10/04: * 70 yo M with T2DM admitted for cardiac complications in the setting of recent prolonged self-discontinuation of medications. Also COVID positive on admission. Dexamethasone initiated. * BSG x1 significantly elevated. Will start with NPH as basal for more rapid onset of action. May continue with next dose tomorrow AM with dexamethasone * Will initiate weight-based severe stress Novolog 2nd steroids and elevated initial BSG PLAN FOR INPATIENT GLYCEMIC CONTROL: * Hold outpatient oral diabetes medications * Basal insulin - add conservative Lantus * Lantus 8 units SC daily (~0.1 unit/kg) * Bolus insulin - loosen * NovoLog per scale ACHS or Q6hrs while NPO * Goal Range: Low 110 mg/dL - High 140 mg/dL * Correction Factor: 25 mg/dL/unit * Nutritional / Prandial insulin per carb ratio of 1 unit per 8 grams CHO consumed PLAN FOR DISCHARGE: * HbA1c of 11.3% suggests very poor outpatient glycemic management * eGFR ~33 mL/min, metformin is generally not recommended for initiation in patients with eGFR: 30-45 * Patient will likely require initiation of insulin at discharge (will follow) * Would discontinue glipizide with initiation of insulin
--- NOTE | 2021-10-05 14:14 | Cardiology Progress Note ---
Date of Service October 05, 2021 Assessment & Plan (1) Acute on chronic heart failure with reduced ejection fraction and diastolic dysfunction: (2) NICM (nonischemic cardiomyopathy): (3) Chronic atrial fibrillation with rapid ventricular response: (4) COVID-19: (5) CKD (chronic kidney disease): Plan: Continue Bumex 1 mg twice daily. Follow daily weight, fluid balance, GFR, and electrolytes. Fluid restriction, 1500 cc daily. Echols catheter placed. Heart rate remains elevated with chronic hypotension. Recommend digoxin loading. He will receive 250 mcg of intravenous digoxin now followed by 125 mcg and 6 hours. Continue metoprolol tartrate 12.5 mg every 6 hours. Patient declines anticoagulation for atrial fibrillation due to history of near fatal GI bleeding in 2010. He is not a candidate for Entresto, SANJIV inhibitor, ARB, or Aldactone due to chronic hypotension and renal insufficiency. Treatment of COVID-19 as per internal medicine. Admission and Anticipated Discharge Date Admission Date: October 04, 2021 Subjective Patient seen and examined at the bedside. Feeling much better from a cardiovascular perspective. Requesting discharge soon as possible. Edema improved. Wearing compression stockings. Notes orthopnea without PND. Telemetry reveals atrial fibrillation with average heart ranging approximately 110-120 bpm. Intermittently, doses of metoprolol are being held by nursing due to hypotension. Denies lightheadedness, dizziness, syncope, or near syncope. Review of Systems Review of Systems: All systems reviewed & are unremarkable except as noted in Subjective Physical Exam Constitutional: + ill appearing and + cachectic Respiratory: no respiratory distress, no labored breathing and no retractions Auscultation: + diminished lung sounds (Bilateral bases) and + rales (Bilateral bases) Cardiovascular: Rate/Rhythm: + tachycardic and + irregularly irregular Heart Sounds: normal S1, normal S2 and + murmur (1-2/6 medium pitched systolic murmur heard best at the left second ICS) Extremities: + edema (2+ bilateral pretibial edema) Gastrointestinal (Abdomen): Inspection/Auscultation: abdomen normal to inspection and normal bowel sounds; abdomen not distended Percussion/Palpation: abdomen soft; abdomen nontender, no guarding and abdomen not rigid Neurologic: CN's II-XI intact bilaterally and moves all extremities; no focal motor deficits Motor/Sensory: no tremor Psychiatric: A+Ox3, euthymic affect Results & Data ([facility]) Vital Signs (Past 12 Hours) Vital Signs Temp Pulse Pulse Resp BP Pulse Ox Pulse Ox 10/05/21 12:12 36.5 C 110 H 19 94/81 L 98 10/05/21 11:21 84 L 10/05/21 10:35 105/80 10/05/21 08:00 91 H 10/05/21 06:51 36.3 C L 104 H 19 98/81 L 96 10/05/21 03:51 36.5 C 105 H 22 96/74 L 97
[2021-10-05] MEDS ORDERED: DIGOXIN 125 MCG in SYRINGE 9.5 ML IV ONE (20:30)
[2021-10-06] MEDS: METOPROLOL TARTRATE 25 MG TAB PO SCH ×4 (00:01→21:40)
[2021-10-06] MEDS: LEVOTHYROXINE SODIUM 50 MCG TABLET PO SCH (05:46)
--- NOTE | 2021-10-06 07:01 | Electrocardiogram Report ---
Test Reason : Blood Pressure : / mmHG Vent. Rate : 087 BPM Atrial Rate : 086 BPM P-R Int : 000 ms QRS Dur : 174 ms QT Int : 472 ms P-R-T Axes : 000 177 018 degrees QTc Int : 567 ms Ventricular-paced rhythm Biventricular pacemaker detected Abnormal ECG When compared with ECG of 04-OCT-2021 13:07, Vent. rate has decreased BY 40 BPM Confirmed by Logan Jackson ([id number]) on 10/06/2021 7:00:41 AM Referred By: Andrew Ruiz Confirmed By:Logan Jackson
[2021-10-06 07:26] LABS: Mean Corpuscular Hgb Conc 31.3 g/dL (32-36)
[2021-10-06 07:55] LABS: Albumin Globulin Ratio 1.4 (0.9-2); BUN Creatinine Ratio 30.6 (10-20); Calcium 7.9 mg/dl (8.5-10.1); Creatinine Clr Calc Pharmacy 37.7 ml/min; Est GFR (African American) 41.3 ml/min; Est GFR (Non-African American) 35.6 ml/min; Globulin 2.1 gm/dl (2.5-4.0); Potassium 3.8 mmol/L (3.5-5.1); Total Protein 5.1 gm/dl (6.0-8.3)
[2021-10-06] MEDS: TOCOPHERYL, DL-ALPHA 400 UNITS 180 MG CAP PO SCH (08:05)
[2021-10-06] MEDS: TOCOPHERYL, DL-ALPHA 100 UNITS CAP PO SCH (08:06)
[2021-10-06] MEDS: BUMETANIDE 1 MG in SYRINGE 0 ML IV SCH ×2 (08:06→17:39)
[2021-10-06] MEDS: PANTOprazole 40 MG TAB PO SCH (08:06)
[2021-10-06 08:18] LABS: Hematocrit (blood only) 37.1 % (42-52); Hemoglobin 11.6 g/dL (14.0-18.0); Mean Corpuscular Hemoglobin 23.9 pg (25-34); Mean Corpuscular Volume 76.3 fL (80-100); RDW Coefficient of Variation 16.7 % (11.5-14.5); Red Blood Count 4.86 M/uL (4.7-6.1); White Blood Count 8.13 K/uL (4.8-10.8)
--- NOTE | 2021-10-06 08:25 | Pharmacy Report ---
Pharmacy Glycemic Short Note 2 - Date of Service October 06, 2021 - Glycemic Short BSG Results (Last 24 hours): 10/05/21 10/05/21 10/05/21 12:04 16:55 20:16 Glucose POC Glucose 177 H 119 H 204 H 10/06/21 10/06/21 06:34 08:03 Glucose 124 H POC Glucose 114 H OUTPATIENT ANTIDIABETIC REGIMEN: * Glipizide (note - patient self dc'd his cardiac medications over the last couple months per H&P. Patient may or may not have been taking of late) * HbA1c: 11.3% (10/05/21) ASSESSMENT: 10/06: * BSGs yesterday of 103, 177, 119, and 204 mg/dL, fasting BSG this morning of 114 mg/dL * Received 33 units of insulin (8 units of basal, 25 units of prandial/correctional bolus) * Discussed with visual educator, patient is agreeable to once daily basal insulin on discharge * Patient preference would be to use vial/syringe method 10/05: * BSGs trended down nicely overnight, 253, 196, and 103 mg/dL this morning * No ongoing steroids ordered - d/c NPH * HbA1c resulted as 11.3%, will start conservative Lantus dose in light of low AM BSG and loosen Novolog parameters with discontinuation of steroids 10/04: * 70 yo M with T2DM admitted for cardiac complications in the setting of recent prolonged self-discontinuation of medications. Also COVID positive on admission. Dexamethasone initiated. * BSG x1 significantly elevated. Will start with NPH as basal for more rapid onset of action. May continue with next dose tomorrow AM with dexamethasone * Will initiate weight-based severe stress Novolog 2nd steroids and elevated initial BSG PLAN FOR INPATIENT GLYCEMIC CONTROL: * Hold outpatient oral diabetes medications * Basal insulin - increase * Lantus 10 units SC daily * Bolus insulin - tighten * NovoLog per scale ACHS or Q6hrs while NPO * Goal Range: Low 110 mg/dL - High 140 mg/dL * Correction Factor: 20 mg/dL/unit * Nutritional / Prandial insulin per carb ratio of 1 unit per 6 grams CHO consumed PLAN FOR DISCHARGE: * HbA1c of 11.3% suggests very poor outpatient glycemic management * eGFR ~33 mL/min, metformin is generally not recommended for initiation in pat ients with eGFR: 30-45 * Patient agreeable to once daily basal insulin via vial/syringe * At this point, I suggest Lantus/Levemir (vial) 15 units SC daily for initial dosing * Would discontinue glipizide with initiation of insulin to minimize risk of hypoglycemia * Ensure prompt follow-up with [facility] clinic for further insulin dose adjustments/addition of mealtime insulin
[2021-10-06] MEDS ORDERED: INSULIN GLARGINE SOLOSTAR 100 UNITS/ML 3 ML PEN SC SCH (09:00)
[2021-10-06] MEDS: INSULIN ASPART PER UNIT SC SCH ×4 (09:09→21:30)
[2021-10-06 09:14] LABS: Platelet Estimate Decreased (Normal)
[2021-10-06] MEDS ORDERED: DIGOXIN 0.125 MG TAB PO ONE (10:01)
--- NOTE | 2021-10-06 11:37 | Cardiology Progress Note ---
Date of Service October 06, 2021 Assessment & Plan (1) Acute on chronic heart failure with reduced ejection fraction and diastolic dysfunction: (2) NICM (nonischemic cardiomyopathy): (3) Chronic atrial fibrillation with rapid ventricular response: (4) COVID-19: (5) CKD (chronic kidney disease): Plan: Continue Bumex 1 mg IV twice daily. Follow daily weight, fluid balance, GFR, and electrolytes. Fluid restriction, 1500 cc daily. Echols catheter placed. Patient to gained weight while taking oral Bumex after most recent hospital discharge from [place]. Recommend transition back to oral torsemide 40 mg in the morning, 20 mg in the evening upon discharge. Titrate metoprolol to tartrate to 25 mg 3 times daily. Recommend 250 mcg of oral digoxin x1 now then 125 mcg 3 days/week. Patient declines anticoagulation for atrial fibrillation due to history of near fatal GI bleeding in 2010. He is not a candidate for Entresto, SANJIV inhibitor, ARB, or Aldactone due to chronic hypotension and renal insufficiency. Treatment of COVID-19 as per internal medicine. Admission and Anticipated Discharge Date Admission Date: October 04, 2021 Subjective Patient seen and examined at the bedside. Feeling better today. Edema improved. Heart rate unchanged on telemetry. Received 2 doses of intravenous digoxin last evening. Review of the record demonstrates previous treatment with oral digoxin 125 mcg daily. Digoxin discontinued during recent hospitalization in [place] due to acute renal insufficiency. Review of Systems Review of Systems: All systems reviewed & are unremarkable except as noted in Subjective Physical Exam Constitutional: + ill appearing and + cachectic Respiratory: no respiratory distress, no labored breathing and no retractions Auscultation: + diminished lung sounds (Bilateral bases) and + rales (Bilateral bases) Cardiovascular: Rate/Rhythm: + tachycardic and + irregularly irregular Heart Sounds: normal S1, normal S2 and + murmur (1-2/6 medium pitched systolic murmur heard best at the left second ICS) Extremities: + edema (2+ bilateral pretibial edema) Gastrointestinal (Abdomen): Inspection/Auscultation: abdomen normal to inspec tion and normal bowel sounds; abdomen not distended Percussion/Palpation: abdomen soft; abdomen nontender, no guarding and abdomen not rigid Neurologic: CN's II-XI intact bilaterally and moves all extremities; no focal motor deficits Motor/Sensory: no tremor Psychiatric: A+Ox3, euthymic affect Results & Data ([facility]) Vital Signs (Past 12 Hours) Vital Signs Temp Pulse Pulse Resp BP Pulse Ox 10/06/21 11:20 36.5 C 107 H 18 109/80 98 10/06/21 07:47 36.5 C 104 H 19 119/93 98 10/06/21 07:23 93 H 10/06/21 03:19 36.9 C 86 16 104/69 95 10/05/21 23:49 36.7 C 88 16 102/81 96
--- NOTE | 2021-10-06 11:56 | Hospitalist Progress Note ---
Date of Service October 06, 2021 Assessment & Plan (1) Severe aortic insufficiency: (2) S/P aortic valve replacement using Ross procedure: (3) S/P AAA repair: (4) HTN (hypertension): (5) Chronic atrial fibrillation: (6) Hypervolemia: (7) Biventricular implantable cardioverter-defibrillator in situ: Plan: - Cardiology - Dr. Shin is on case, follows routinely with Dr. Ruiz as an outpatient and came from the cardiac office yesterday - IV Bumex, he has recently been on bumex as an outpatient and was changed over to torsemide in the past 2 weeks, cards to determine which diuretic to continue on discharge - Echols cath for strict I/Os - Continue daily weights, fluid restriction of 1500 mL daily - Monitor Cr. daily with aggressive diuresis, Cr. baseline is 1.8-2.1, currently 1.89 - no anticoagulation secondary to hx of near fatal GI bleed in 2010 (8) DM II (diabetes mellitus, type II), controlled: Plan: - Hold glipizide, ISS with accu checks achs - Recheck A1C - Boost ordered (9) Hypothyroidism: Plan: - Continue levothyroxine DVT ppx: - teds, scds CODE: DNI/DNR Dispo: From home ROS-No Headache, No Visual Changes, No Nausea, No Vomiting, No Fever, No Chills, No Neck Pain or Stiffness, No Chest Pain, No Palpitations, No SOB, No NELSON, No Cough, No Sputum, No Wheezing, No Abdominal Pain, No Diarrhea, No Hematemesis, No Hemoptysis, No Unexpected Weight Loss, No Flank pain, No Melena, No Hematochezia, No Frequency, No Urgency, No Burning, No Hematuria, No Rashes, No Diaphoresis. Appetite is Normal Physical Exam Gen-AAO x 3, NAD, Afebrile Head-NCAT, EOMI, PERRLA, Anicteric Sclera, No Posterior Pharyngeal Erythema Neck-Supple, No JVD, No Thyromegaly, No Masses, No LAD, No Bruits Lungs-Clear to Auscultation Bilaterally, No Rales, No Rhonchi, No Wheezing, No Crepitus Chest-No S4, +S1, +S2, No S3, No Murmurs, No Rubs, No Gallops, No Ectopy Abdomen-Soft, Bowel Sounds Present, Non Tender, Non Distended, No Hepatomegaly, No Splenomegaly, No Palpable Masses, No Rebound, No Rigidity, No Guarding Musculoskeletal-Full Range of Motion Bilaterally, No CVAT Extremities-No Cyanosis, No Clubbing, No Edema Nuero-Cranial Nerves II-XII grossly intact, Motor WNL, DTRs WNL, Strength WNL, Non Focal Psych-Normal Mood Admission and Anticipated Discharge Date Admission Date: October 04, 2021 Subjective Patient seen and examined at the bedside. Wants Insulin and not PO Meds for DM. Results & Data Results & Data ([facility]) Vital Signs (Past 12 Hours) Vital Signs Temp Pulse Pulse Resp BP Pulse Ox 10/06/21 11:20 36.5 C 107 H 18 109/80 98 10/06/21 07:47 36.5 C 104 H 19 119/93 98 10/06/21 07:23 93 H 10/06/21 03:19 36.9 C 86 16 104/69 95 Laboratory Results Reviewed
[2021-10-06 14:07] LABS: Platelet Count 105 K/uL (130-400)
[2021-10-06] MEDS ORDERED: bisacodyL 5 MG TABEC PO PRN (17:02)
[2021-10-06] MEDS: HEPARIN SOD 5,000 UNIT/0.5 ML VIAL SQ SCH (20:48)
[2021-10-06] MEDS: TEMAZEPAM 15 MG CAPSULE PO PRN (21:51)
[2021-10-07] MEDS: LEVOTHYROXINE SODIUM 50 MCG TABLET PO SCH (05:36)
[2021-10-07 08:05] LABS: Mean Corpuscular Hgb Conc 30.9 g/dL (32-36)
[2021-10-07 08:14] LABS: Hematocrit (blood only) 41.8 % (42-52); Hemoglobin 12.9 g/dL (14.0-18.0); Mean Corpuscular Hemoglobin 24.1 pg (25-34); Mean Corpuscular Volume 78.1 fL (80-100); RDW Coefficient of Variation 17.1 % (11.5-14.5); RDW Standard Deviation 46.6 fL (36.4-46.3); Red Blood Count 5.35 M/uL (4.7-6.1); White Blood Count 10.13 K/uL (4.8-10.8)
[2021-10-07] MEDS: METOPROLOL TARTRATE 25 MG TAB PO SCH (08:18)
[2021-10-07] MEDS: BUMETANIDE 1 MG in SYRINGE 0 ML IV SCH ×2 (08:19→17:46)
[2021-10-07] MEDS: TOCOPHERYL, DL-ALPHA 100 UNITS CAP PO SCH (08:20)
[2021-10-07] MEDS: ASPIRIN 81 MG ECTAB PO SCH (08:20)
[2021-10-07] MEDS: HEPARIN SOD 5,000 UNIT/0.5 ML VIAL SQ SCH (08:20)
[2021-10-07] MEDS: PANTOprazole 40 MG TAB PO SCH (08:20)
[2021-10-07] MEDS: TOCOPHERYL, DL-ALPHA 400 UNITS 180 MG CAP PO SCH (08:21)
[2021-10-07 08:25] LABS: Albumin Globulin Ratio 1.3 (0.9-2); Albumin Level 3.3 gm/dl (3.4-5.0); BUN Creatinine Ratio 29.3 (10-20); Bilirubin,Total 1.1 mg/dl (0.2-1.0); Creatinine Clr Calc Pharmacy 37.2 ml/min; Est GFR (African American) 40.7 ml/min; Est GFR (Non-African American) 35.1 ml/min; Globulin 2.6 gm/dl (2.5-4.0); Potassium 3.8 mmol/L (3.5-5.1); Total Protein 5.9 gm/dl (6.0-8.3)
[2021-10-07 08:34] LABS: Platelet Count 134 K/uL (130-400)
[2021-10-07 08:35] LABS: Platelet Estimate Decreased (Normal)
[2021-10-07] MEDS: INSULIN ASPART PER UNIT SC SCH ×4 (09:24→22:38)
[2021-10-07] MEDS: INSULIN GLARGINE SOLOSTAR 100 UNITS/ML 3 ML PEN SC SCH (09:25)
--- NOTE | 2021-10-07 11:04 | Pharmacy Report ---
Pharmacy Glycemic Short Note 2 - Date of Service October 07, 2021 - Glycemic Short BSG Results (Last 24 hours): 10/06/21 10/06/21 10/06/21 11:57 16:42 20:42 Glucose POC Glucose 208 H 136 H 63 L* 10/06/21 10/06/21 10/06/21 20:43 21:19 21:45 Glucose POC Glucose 65 L* 69 L* 96 10/07/21 10/07/21 07:32 07:58 Glucose 280 H POC Glucose 291 H OUTPATIENT ANTIDIABETIC REGIMEN: * Glipizide (note - patient self dc'd his cardiac medications over the last couple months per H&P. Patient may or may not have been taking of late) * HbA1c: 11.3% (10/05/21) ASSESSMENT: 10/07/21: * Fasting BSG elevated this morning (280mg/dL). Lantus increased. * Patient was slightly hypoglycemic at HS last evening. Novolog parameters loosened slightly this morning. * Pharmacy will continue to follow. 10/06 * BSGs yesterday of 103, 177, 119, and 204 mg/dL, fasting BSG this morning of 114 mg/dL * Received 33 units of insulin (8 units of basal, 25 units of prandial/correctional bolus) * Discussed with personal development educator, patient is agreeable to once daily basal insulin on discharge * Patient preference would be to use vial/syringe method 10/05 * BSGs trended down nicely overnight, 253, 196, and 103 mg/dL this morning * No ongoing steroids ordered - d/c NPH * HbA1c resulted as 11.3%, will start conservative Lantus dose in light of low AM BSG and loosen Novolog parameters with discontinuation of steroids 10/04 * 70 yo M with T2DM admitted for cardiac complications in the setting of recent prolonged self-discontinuation of medications. Also COVID positive on admission. Dexamethasone initiated. * BSG x1 significantly elevated. Will start with NPH as basal for more rapid onset of action. May continue with next dose tomorrow AM with dexamethasone * Will initiate weight-based severe stress Novolog 2nd steroids and elevated initial BSG PLAN FOR INPATIENT GLYCEMIC CONTROL: * Hold outpatient oral diabetes medications * Basal insulin - increase * Lantus 15 units SC daily * Bolus insulin - * NovoLog per scale ACHS or Q6hrs while NPO * Goal Range: Low 110 mg/dL - High 140 mg/dL * Correction Factor: 25 mg/dL/unit * Nutritional / Prandial insulin per carb ratio of 1 unit per 7 grams CHO consumed PLAN FOR DISCHARGE: * HbA1c of 11.3% suggests very poor outpatient glycemic management * eGFR ~33 mL/min, metformin is generally not recommended for initiation in patients with eGFR: 30-45 * Patient agreeable to once daily basal insulin via vial/syringe * At this point, I suggest Lantus/Levemir (vial) 15 units SC daily for initial dosing * Would discontinue glipizide with initiation of insulin to minimize risk of hypoglycemia * Ensure prompt follow-up with [facility] clinic for further insulin dose adjustments/addition of mealtime insulin
--- NOTE | 2021-10-07 11:28 | Cardiology Progress Note ---
Date of Service October 07, 2021 Assessment & Plan (1) Acute on chronic heart failure with reduced ejection fraction and diastolic dysfunction: (2) NICM (nonischemic cardiomyopathy): (3) Chronic atrial fibrillation with rapid ventricular response: (4) COVID-19: (5) CKD (chronic kidney disease): Plan: Follow daily weight, fluid balance, GFR, and electrolytes. Fluid restriction, 1500 cc daily. Echols catheter placed. Patient to gained weight while taking oral Bumex after most recent hospital discharge from [place]. Recommend transition back to oral torsemide 40 mg in the morning, 20 mg in the evening upon discharge. Titrate metoprolol to tartrate to 50mg bid. Recommend oral digoxin 125 mcg 3 days/week. Pacemaker in place Patient declines anticoagulation for atrial fibrillation due to history of near fatal GI bleeding in 2010. He is not a candidate for Entresto, SANJIV inhibitor, ARB, or Aldactone due to chronic hypotension and renal insufficiency. Treatment of COVID-19 as per internal medicine. Admission and Anticipated Discharge Date Admission Date: October 04, 2021 Subjective Patient chart was reviewed telemetry personally reviewed and care discussed with caregivers. No acute complaints overnight. Oxygenating well on room air. Good diuresis. Blood pressure controlled heart rates intermittently elevated Results & Data ([facility]) Vital Signs (Past 12 Hours) Vital Signs Temp Pulse Pulse Resp BP Pulse Ox 10/07/21 11:04 36.9 C 108 H 20 110/81 94 10/07/21 10:25 120 H 10/07/21 08:00 122 H 16 124/83 96 10/07/21 03:07 36.3 C L 102 H 18 113/86 97 10/06/21 23:29 36.6 C 105 H 18 99/79 L 94 Laboratory Results Laboratory Results - last 24 hr 10/06/21 10/06/21 10/06/21 06:34 11:57 16:42 WBC RBC Hgb Hct MCV MCH MCHC RDW Std Deviation RDW Coeff of Jenny Plt Count 105 L Platelet Estimate Sodium Potassium Chloride Carbon Dioxide Anion Gap BUN Creatinine Est Cr Clr Drug Dosing Est GFR ( Amer) Est GFR (Non-Af Amer) BUN/Creatinine Ratio Glucose POC Glucose 208 H 136 H Calcium Total Bilirubin AST ALT Alkaline Phosphatase Total Protein Albumin Globulin Albumin/Globulin Ratio 10/06/21 10/06/21 10/06/21 20:42 20:43 21:19 WBC RBC Hgb Hct MCV MCH MCHC RDW Std Deviation RDW Coeff of Jenny Plt Count Platelet Estimate Sodium Potassium Chloride Carbon Dioxide Anion Gap BUN Creatinine Est Cr Clr Drug Dosing Est GFR ( Amer) Est GFR (Non-Af Amer) BUN/Creatinine Ratio Glucose POC Glucose 63 L* 65 L* 69 L* Calcium Total Bilirubin AST ALT Alkaline Phosphatase Total Protein Albumin Globulin Albumin/Globulin Ratio 10/06/21 10/07/21 10/07/21 21:45 07:32 07:32 WBC 10.13 RBC 5.35 Hgb 12.9 L Hct 41.8 L MCV 78.1 L MCH 24.1 L MCHC 30.9 L RDW Std Deviation 46.6 H RDW Coeff of Jenny 17.1 H Plt Count 134 Platelet Estimate Decreased L Sodium 137 Potassium 3.8 Chloride 101 Carbon Dioxide 29 Anion Gap 7 BUN 55 H Creatinine 1.88 H Est Cr Clr Drug Dosing 37.2 Est GFR ( Amer) 40.7 Est GFR (Non-Af Amer) 35.1 BUN/Creatinine Ratio 29.3 H Glucose 280 H POC Glucose 96 Calcium 8.0 L Total Bilirubin 1.1 H AST 27 ALT 28 Alkaline Phosphatase 141 H Total Protein 5.9 L Albumin 3.3 L Globulin 2.6 Albumin/Globulin Ratio 1.3 10/07/21 07:58 WBC RBC Hgb Hct MCV MCH MCHC RDW Std Deviation RDW Coeff of Jenny Plt Count Platelet Estimate Sodium Potassium Chloride Carbon Dioxide Anion Gap BUN Creatinine Est Cr Clr Drug Dosing Est GFR ( Amer) Est GFR (Non-Af Amer) BUN/Creatinine Ratio Glucose POC Glucose 291 H Calcium Total Bilirubin AST ALT Alkaline Phosphatase Total Protein Albumin Globulin Albumin/Globulin Ratio
[2021-10-07] MEDS ORDERED: METOPROLOL TARTRATE 25 MG TAB PO ONE (11:32)
--- NOTE | 2021-10-07 11:47 | Hospitalist Progress Note ---
Date of Service October 07, 2021 Assessment & Plan (1) Severe aortic insufficiency: (2) S/P aortic valve replacement using Ross procedure: (3) S/P AAA repair: (4) HTN (hypertension): (5) Chronic atrial fibrillation: (6) Hypervolemia: (7) Biventricular implantable cardioverter-defibrillator in situ: Plan: - Cardiology - Dr. Sorensen on case this weekend follows routinely with Dr. Ruiz as an outpatient and came from the cardiac office - IV Bumex, he has recently been on bumex as an outpatient and was changed over to torsemide in the past 2 weeks, patient will be on torsemide 40 mg in the morning and 20 mg in the evening on discharge - Echols cath for strict I/Os - Continue daily weights, fluid restriction of 1500 mL daily - Monitor Cr. daily with aggressive diuresis, Cr. baseline is 1.8-2.1, currently 1.89 - no anticoagulation secondary to hx of near fatal GI bleed in 2010 (8) DM II (diabetes mellitus, type II), controlled: Plan: - ISS with accu checks achs - Recheck A1C - Boost ordered (9) Hypothyroidism: Plan: - Continue levothyroxine DVT ppx: - teds, scds CODE: DNI/DNR Dispo: From home ROS-No Headache, No Visual Changes, No Nausea, No Vomiting, No Fever, No Chills, No Neck Pain or Stiffness, No Chest Pain, No Palpitations, No SOB, No NELSON, No Cough, No Sputum, No Wheezing, No Abdominal Pain, No Diarrhea, No Hematemesis, No Hemoptysis, No Unexpected Weight Loss, No Flank pain, No Melena, No Hematochezia, No Frequency, No Urgency, No Burning, No Hematuria, No Rashes, No Diaphoresis. Appetite is Normal Physical Exam Gen-AAO x 3, NAD, Afebrile Head-NCAT, EOMI, PERRLA, Anicteric Sclera, No Posterior Pharyngeal Erythema Neck-Supple, No JVD, No Thyromegaly, No Masses, No LAD, No Bruits Lungs-Clear to Auscultation Bilaterally, No Rales, No Rhonchi, No Wheezing, No Crepitus Chest-tachycardic, no S4, +S1, +S2, No S3, No Murmurs, No Rubs, No Gallops, positive ectopy Abdomen-Soft, Bowel Sounds Present, Non Tender, Non Distended, No Hepatomegaly, No Splenomegaly, No Palpable Masses, No Rebound, No Rigidity, No Guarding Musculoskeletal-Full Range of Motion Bilaterally, No CVAT Extremities-No Cyanosis, No Clubbing, Edema much better positive FRANSISCO Coreas-Cranial Nerves II-XII grossly intact, Motor WNL, DTRs WNL, Strength WNL, Non Focal Psych-Normal Mood Admission and Anticipated Discharge Date Admission Date: October 04, 2021 Subjective Patient seen in his room, really wants to go home, blood pressure is okay but heart rate is still high. Results & Data Results & Data ([facility]) Vital Signs (Past 12 Hours) Vital Signs Temp Pulse Pulse Resp BP Pulse Ox 10/07/21 11:04 36.9 C 108 H 20 110/81 94 10/07/21 10:25 120 H 10/07/21 08:00 122 H 16 124/83 96 10/07/21 03:07 36.3 C L 102 H 18 113/86 97 Laboratory Results Reviewed
[2021-10-07] MEDS: PHARMACY GLYCEMIC MGMT CONSULT PRN (12:56)
[2021-10-07] MEDS: TEMAZEPAM 15 MG CAPSULE PO PRN (20:22)
[2021-10-07] MEDS: METOPROLOL TARTRATE 50 MG TAB PO SCH (20:22)
[2021-10-08] MEDS: LEVOTHYROXINE SODIUM 50 MCG TABLET PO SCH (06:35)
[2021-10-08] MEDS: PANTOprazole 40 MG TAB PO SCH (08:04)
[2021-10-08] MEDS: TOCOPHERYL, DL-ALPHA 100 UNITS CAP PO SCH (08:04)
[2021-10-08] MEDS: METOPROLOL TARTRATE 50 MG TAB PO SCH (08:05)
[2021-10-08] MEDS: BUMETANIDE 1 MG in SYRINGE 0 ML IV SCH (08:06)
[2021-10-08] MEDS: TOCOPHERYL, DL-ALPHA 400 UNITS 180 MG CAP PO SCH (08:07)
[2021-10-08] MEDS: ASPIRIN 81 MG ECTAB PO SCH (08:08)
[2021-10-08] MEDS: INSULIN GLARGINE SOLOSTAR 100 UNITS/ML 3 ML PEN SC SCH (08:30)
[2021-10-08] MEDS: PHARMACY GLYCEMIC MGMT CONSULT PRN (08:30)
[2021-10-08] MEDS: INSULIN ASPART PER UNIT SC SCH (08:30)
--- NOTE | 2021-10-08 09:11 | Discharge Summary ---
Date of Service October 08, 2021 Admission HPI Per Admitting Provider This is a 70 yo M with PMhx of CHF; history of complex multifactorial nonischemic cardiomyopathy, aortic valve replacement s/p Ross procedure in 1995 and aortic valve replacement for aoritc insufficiency at [facility] in 2011, AAA s/o repair in 2010, chronic atrial fibrillation, not on anticoagulation due to past life-threatening gastrointestinal bleeding in 2010, Severe aortic insufficiency, EF of 20-25%, HTN, atrial flutter s/p cavotricuspid isthmus ablation in 2010 and ablation of a second right atrial (scar) atrial flutter in 2010, LBBB, s/p implantation of [employer] biventricular defibrillator in 2011, DM II and hypothyroidism. Unfortunately over the last few months, patient decided to complete a dietary 'cleanse' and subsequently stopped taking all of his cardiac medications. He developed worsening SOB, and fluid retention. He resumed his torsemide as an outpatient without improvement. On 09/18/21 he was admitted to [facility] for acute decompensated systolic HF exacerbation, complicated by elevated LFT's, CARLITOS, and afib RVR. He was followed by cardiology. He was started on IV lasix with improvement in his volume status. Digoxin was discontinued and metoprolol increased to 37.5 mg BID to aid with ventricular rates. He was not anticoagulated due to past GI bleeding issues and patient preference. Amiloride was stopped on discharge as well. He resumed prior dose of Bumex 2 mg in the morning and 1 mg in the afternoon on discharge. Since being discharged he reports worse fluid retention, and weight gain of 15 lbs. He was seen last week due to being acutely worse with SOB and fluid retention and declined hospitalization at that time. He was treated with IV lasix 80 mg. Bumex was stopped and torsemide was initiated. Metoprolol was also resumed at 37.5 mg as the pt had reduced dose back to 25 mg since hospital discharge. He presented to the outpatient cardiology clinic earlier today. After his visit there, EMS was called and he was brought directly to the hospital. His symptoms include significant dyspnea with minimal exertion, bilateral lower edema with swelling so severe that there are clear fluid seeping out at times. His weight is down slightly ( 6 lbs) in the cards office compared to last week but still reports feeling worse. Dry weight is 185 lbs, but weighs 196 today. Pt reports no shorntess of breath at rest. His appetite is slightly diminished, but is hungry currently and requesting a drink for thirst. Pt would like a protein supplement while here. He denies dizziness, lightheadedness, chest pain and palpitations. Admission Exam Per Admitting Provider Constitutional: No fever, sweats or chills Eyes: No diplopia, no worsening or blurred vision ENT: normal hearing, no trouble swallowing, + dry nose and bleeding if he takes baby aspirin every day Respiratory: + occasional dry cough, occasional clear sputum, no dyspnea at rest, + dyspnea on exertion, no orthopnea, no O2 use at baseline Cardiovascular: No chest pain, tightness or palpitations Abdomen: + decreased appetite, No pain, nausea, vomiting, diarrhea or constipation Musculoskeletal: No joint pain, calf pain, + significant lower extremity swelling Neurologic: + generalized weakness, no numbness/tingling, or balance problems Psychiatric: No anxiety or depression Skin: No rash or itch Principal Diagnosis (1) Severe aortic insufficiency: (2) S/P aortic valve replacement using Ross procedure: (3) S/P AAA repair: (4) HTN (hypertension): (5) Chronic atrial fibrillation: (6) Hypervolemia: (7) Biventricular implantable cardioverter-defibrillator in situ: (8) DM II (diabetes mellitus, type II), controlled: (9) Hypothyroidism: Discharge Exam see below Discharge Data Allergies Allergy/AdvReac Type Severity Reaction Status Date / Time latex Allergy Mild RASH Verified 10/04/21 13:44 amiodarone Allergy Unknown liver Verified 10/04/21 13:44 complications NSAIDS (Non-Steroidal Allergy Unknown unknown Verified 10/04/21 13:44 Anti-Inflamma Bxohdzx-ABS-PjK Reductase Allergy Unknown myositis Verified 10/04/21 13:44 Inhibitor [Qwvwrbx-Ukr-Dxj Reductase Inhibitor] gabapentin Allergy Confusion Unverified 10/04/21 13:44 pregabalin [From Lyrica] Allergy Confusion Unverified 10/04/21 13:44 Consultations 10/04/21 17:11 Consult Cardiology Routine Ordered Studies Current Diagnoses Hypothyroidism, unspecified (10/04/21) Type 2 diabetes mellitus without complications (10/04/21) Fluid overload, unspecified (10/04/21) Essential (primary) hypertension (10/04/21) Nonrheumatic aortic (valve) insufficiency (10/04/21) Other cardiomyopathies (10/04/21) Chronic atrial fibrillation, unspecified (10/04/21) Acute on chronic combined systolic (congestive) and diastolic (congestive) heart failure (10/04/21) Chronic kidney disease, unspecified (10/04/21) COVID-19 (10/04/21) Personal history of other diseases of the circulatory system (10/04/21) Presence of other heart-valve replacement (10/04/21) Presence of automatic (implantable) cardiac defibrillator (10/04/21) Other specified postprocedural states (10/04/21) Allergies latex Allergy (Mild, Verified 10/04/21 13:44) RASH amiodarone Allergy (Unknown, Verified 10/04/21 13:44) liver complications NSAIDS (Non-Steroidal Anti-Inflamma Allergy (Unknown, Verified 10/04/21 13:44) unknown Xexdzve-DFB-ZbQ Reductase Inhibitor [Vuqmima-Mvw-Sxy Reductase Inhibitor] Allergy (Unknown, Verified 10/04/21 13:44) myositis gabapentin Allergy (Unverified 10/04/21 13:44) Confusion pregabalin [From Lyrica] Allergy (Unverified 10/04/21 13:44) Confusion Height/Weight/Isolation Height 5 ft 4 in Weight 92.6 kg Isolation Type COVID Precautions Chemistry 10/07/21 07:32 Sodium 137 Potassium 3.8 Chloride 101 Carbon Dioxide 29 Anion Gap 7 BUN 55 H Creatinine 1.88 H Glucose 280 H Diabetes Follow up Diabetes Follow-up Needed for HgbA1c >9% Hospital Course (1) Severe aortic insufficiency: (2) S/P aortic valve replacement using Ross procedure: (3) S/P AAA repair: (4) HTN (hypertension): (5) Chronic atrial fibrillation: (6) Hypervolemia: (7) Biventricular implantable cardioverter-defibrillator in situ: - Cardiology - Dr. Sorensen on case this weekend follows routinely with Dr. Ruiz as an outpatient and came from the cardiac office - IV Bumex, he has recently been on bumex as an outpatient and was changed over to torsemide in the past 2 weeks, patient will be on torsemide 40 mg in the morning and 20 mg in the evening on discharge - DC sanches - no anticoagulation secondary to hx of near fatal GI bleed in 2011 (8) DM II (diabetes mellitus, type II), controlled: DC on Lantus (9) Hypothyroidism: - Continue levothyroxine CODE: DNI/DNR Dispo: DC home ROS-No Headache, No Visual Changes, No Nausea, No Vomiting, No Fever, No Chills, No Neck Pain or Stiffness, No Chest Pain, No Palpitations, No SOB, No NELSON, No Cough, No Sputum, No Wheezing, No Abdominal Pain, No Diarrhea, No Hematemesis, No Hemoptysis, No Unexpected Weight Loss, No Flank pain, No Melena, No Hematochezia, No Frequency, No Urgency, No Burning, No Hematuria, No Rashes, No Diaphoresis. Appetite is Normal Physical Exam Gen-AAO x 3, NAD, Afebrile Head-NCAT, EOMI, PERRLA, Anicteric Sclera, No Posterior Pharyngeal Erythema Neck-Supple, No JVD, No Thyromegaly, No Masses, No LAD, No Bruits Lungs-Clear to Auscultation Bilaterally, No Rales, No Rhonchi, No Wheezing, No Crepitus Chest-HR 61, Irreg/Irreg, no S4, +S1, +S2, No S3, No Murmurs, No Rubs, No Gallops, positive ectopy Abdomen-Soft, Bowel Sounds Present, Non Tender, Non Distended, No Hepatomegaly, No Splenomegaly, No Palpable Masses, No Rebound, No Rigidity, No Guarding Musculoskeletal-Full Range of Motion Bilaterally, No CVAT Extremities-No Cyanosis, No Clubbing, Edema much better positive FRANSISCO hose Nuero-Cranial Nerves II-XII grossly intact, Motor WNL, DTRs WNL, Strength WNL, Non Focal Psych-Normal Mood Total Time Total Time Spent Total Time Spent (In Minutes): 45 mins Discharge Plan Discharge Items Patient Disposition: Home - Self-Care Reason For Visit: SEVERE AORTIC INSUFFICIENCY, HYPERVOLEMIA, AFIB Discharge Diagnosis: (1) Severe aortic insufficiency: (2) S/P aortic valve replacement using Ross procedure: (3) S/P AAA repair: (4) HTN (hypertension): (5) Chronic atrial fibrillation: (6) Hypervolemia: (7) Biventricular implantable cardioverter-defibrillator in situ: (8) DM II (diabetes mellitus, type II), controlled: (9) Hypothyroidism: Condition on Discharge: Fair Health Concerns: Compliance with medications and follow up appointments Activity: Resume your previous activity Lifting: Gradually increase as tolerated Bathing: No limitations Sexual Activity: When tolerated Exercise/Sports: Gradually increase as tolerated Driving/Machine Use: No limitations Weightbearing: Full weightbearing Non-emergency contact: Primary Care Provider and C S S Representative Call non-emergency contact if: you have any medication questions Follow-up/Referrals: Andrew Ruiz DO [C S S Representative] - (Call for first opening) Bryon Pimentel MD [Primary Care Provider] - (Date & Time 10/17/2021 11:20 AM Provider Bryon Pimentel MD [facility] ) Diet: Carb Consistent or DM2 and Heart Healthy Addtl Attending Provider Instructions: Weigh yourself daily, if you gain more than [address] Pimentel or Dr Ruiz Pending Studies at Discharge: No Stand-Alone Forms: My [facility] DaWanda, Smoking Cessation Medications and DC Order Prescriptions: New albuterol sulfate [Ventolin HFA] 90 mcg/actuation Hfa Aerosol Inhaler 2 puff inhalation Q2H PRN (Reason: shortness of breath or wheezing) Qty: 2 RF: 0 Lantus Solostar U-100 Insulin 100 unit/mL (3 mL) Insulin Pen 15 unit SC DAILY Qty: 10 RF: 0 metoprolol tartrate 50 mg Tablet 50 mg PO BID Qty: 60 RF: 0 Continued levothyroxine 25 mcg tablet 50 mcg PO DAILYBB RF: 0 aspirin 81 mg Capsule 81 mg PO DAILY RF: 0 vitamin E 1,000 unit Capsule 1,000 unit PO DAILY RF: 0 omeprazole 40 mg capsule,delayed release(DR/EC) 40 mg PO QAM RF: 0 temazepam 30 mg capsule 30 mg PO HS PRN (Reason: Sleep) RF: 0 inulin 1.5 gram Tablet,Chewable 0 g PO DAILY RF: 0 Changed torsemide 20 mg Tablet 20 mg PO DIRECTED Qty: 90 RF: 0 Discontinued glipizide 2.5 mg tablet extended release 24 hr 2.5 mg PO DAILY RF: 0 metoprolol succinate 25 mg tablet extended release 24 hr 37.5 mg PO BID RF: 0 Discharge Orders: Discharge Order (Routine); Ordered 10/08/21 Ordered By: Jagdeep Jain/Other Patient Handouts: Heart Failure Dc, Heart Failure Flare Up Signs, Heart Failure Admission Data Admit Date/Time: 10/04/21 13:41 Attending Provider: Jagdeep Burdick Admit Provider: Gamal Sheppard Primary Care Provider: Bryon Pimentel I. Other Providers: Garret Rao
== END 2021-10-08 10:33 | disposition home or self-care (01) | DRG 291 ==
LOC: ED 12:49 → SUATTDRO 13:41 → 2S 13:41
DX: I50.43 Acute on chronic combined systolic (congestive) and diastolic (congestive) heart failure; U07.1 COVID-19; I42.8 Other cardiomyopathies; N18.9 Chronic kidney disease, unspecified; Z95.2 Presence of prosthetic heart valve; I48.20 Chronic atrial fibrillation, unspecified; Z79.899 Other long term (current) drug therapy; Z79.82 Long term (current) use of aspirin; Z66 Do not resuscitate; T44.7X5A Adverse effect of beta-adrenoreceptor antagonists, initial encounter; Z88.8 Allergy status to other drugs, medicaments and biological substances; I13.0 Hypertensive heart and chronic kidney disease with heart failure and stage 1 through stage 4 chronic kidney disease, or unspecified chronic kidney disease; Z91.040 Latex allergy status; E03.9 Hypothyroidism, unspecified; I35.1 Nonrheumatic aortic (valve) insufficiency; Z88.6 Allergy status to analgesic agent; Z79.890 Hormone replacement therapy; Z95.810 Presence of automatic (implantable) cardiac defibrillator; I95.9 Hypotension, unspecified